=== PATIENT | male | born 1960 | race Caucasian/White ===

== ENCOUNTER 2022-06-27 08:51 | Day surgery (SDC) | payer MEDICARE ==
[~2022-06-27 08:51] MED LIST: ACETAMINOPHEN TAB 500 MG TAB PO PRN; DEXAMETHASONE SOD PHOSPHATE 4 MG/ML 1 ML VIAL IV ONE; HEPARIN SODIUM,PORCINE/PF 5,000 UNIT/0.5 ML SYRINGE SQ PRN; HYDROmorphone 0.5 MG/0.5 ML SYRINGE IVP PRN; LACTATED RINGERS 1,000 ML IV SCH; LIDOCAINE 1% (10MG/ML) FOR IV START INTRADERMA PRN; ONDANSETRON 4 MG/2 ML VIAL IVP ONE
[2022-06-27] MEDS ORDERED: SODIUM CHLORIDE 0.9% 1,000 ML IV ONE (09:15)
[2022-06-27 09:31] VITALS: TEMP 97.9
[2022-06-27 09:33] LABS: Glucose,Whole Blood 226 mg/dL (70-110)
[2022-06-27 09:59] LABS: Basophils % (A) 0 %; Eosinophils # (A) 0.2 k/uL (0-0.7); Eosinophils % (A) 6 %; HCT 27.7 % (39.0-53.0); HGB 9.9 gm/dL (13.0-17.5); Lymphocytes # (A) 0.7 k/uL (1.0-4.8); Lymphocytes % (A) 20 %; MCH 31.2 pg (25.0-35.0); MCHC 35.7 g/dL (31.0-37.0); MCV 87.3 fL (80.0-100.0); Mean Platelet Volume 8.1; Monocytes # (A) 0.4 k/uL (0-1.0); Monocytes % (A) 9 %; Neutrophils # (A) 2.3 k/uL (1.3-7.7); Neutrophils % (A) 62 %; Platelet Count 136 k/uL (150-450); RBC 3.17 m/uL (4.30-5.90); RDW 13.5 % (11.5-15.5); WBC 3.7 k/uL (3.8-10.6)
[2022-06-27 10:02] LABS: Calcium 8.5 mg/dL (8.4-10.2); Potassium 3.9 mmol/L (3.5-5.1)
[2022-06-27] MEDS ORDERED: LIDOCAINE 2% INJ 20 MG/ML (2 ML VIAL) ONE (11:19)
[2022-06-27] MEDS ORDERED: PROPOFOL 10 MG/ML 20 ML VIAL IV ONE (11:19)
[2022-06-27] MEDS ORDERED: MIDAZOLAM 2 MG/2 ML VIAL ONE (11:19)
[2022-06-27] MEDS ORDERED: fentaNYL (PF) 50 MCG/ML 2 ML AMP ONE (11:19)
[2022-06-27] MEDS ORDERED: MINERAL OIL 1 APPLIC/ML OIL MISCELLANE ONE (11:22)
[2022-06-27] MEDS ORDERED: BUPIVACAIN-EPI 0.25%-1:200,000 30 ML VIAL SQ ONE ×2 (11:22)
[2022-06-27] MEDS ORDERED: NALOXONE 0.4 MG/ML 1 ML VIAL IV PRN (12:22)
[2022-06-27] MEDS ORDERED: HYDROcodone/APAP 5-325MG 1 EACH TAB PO PRN (12:22)
--- NOTE | 2022-06-27 12:24 | P.OP ---
Date of Procedure: 06/27/22 Procedure(s) Performed: PREOPERATIVE DIAGNOSIS: Renal failure POSTOPERATIVE DIAGNOSIS: Same PROCEDURE: Peritoneal dialysis catheter insertion SURGEON: David EBL: Minimal ANESTHESIA: Sedation plus local COMPLICATIONS: None OPERATIVE PROCEDURE: The patient was placed in the operative table in the supine position. The abdomen was prepped and draped in usual sterile fashion. A small vertical incision was made in the left periumbilical location. Dissection down through the subcutaneous tissues took place using electrocautery. The anterior rectus was divided vertically using the scalpel. The rectus was bluntly. The posterior rectus was visualized. An 0 Vicryl pursestring was placed. A small opening in the posterior rectus fascia and peritoneum took place using a Metzenbaum scissors. There were no adhesions to the suture that was placed. The pigtail catheter was advanced into the pelvis over a stylette. No resistance was met. The inner cuff was secured to the fascia using the 0 Vicryl pursestring that was placed. The catheter was tunneled to an exit site in the left lateral lower quadrant. The catheter was connected to the 1 L bag of saline and approximated 800 mL of saline was easily introduced into the peritoneal cavity. The fluid was then allowed to evacuate. The majority of the fluid was returned. The anterior rectus fascia was then reapproximated using a running 0 Vicryl stitch. The subcutaneous tissues reprepped using 3-0 Vicryl sutures and the skin using 4-0 Monocryl sutures. The outpatient dialysis adapter was applied to the end of the catheter. Sterile dressings were then applied after skin glue was placed over the incision. DISPOSITION: Stable to recovery room
[2022-06-27 12:33] VITALS: RESP 16
[2022-06-27 12:50] VITALS: BP 132/73; PULSE 55
[2022-06-27 13:06] LABS: Glucose,Whole Blood 163 mg/dL (70-110)
== END 2022-06-27 13:31 | disposition home or self-care (01) ==
LOC: OR 08:51
PROVIDERS: ATTEND Surgery
DX: I12.9 Hypertensive chronic kidney disease with stage 1 through stage 4 chronic kidney disease, or unspecified chronic kidney disease (principal); N18.9 Chronic kidney disease, unspecified; E11.22 Type 2 diabetes mellitus with diabetic chronic kidney disease; E11.69 Type 2 diabetes mellitus with other specified complication; E78.5 Hyperlipidemia, unspecified; I25.10 Atherosclerotic heart disease of native coronary artery without angina pectoris; I25.2 Old myocardial infarction; E11.42 Type 2 diabetes mellitus with diabetic polyneuropathy; Z86.73 Personal history of transient ischemic attack (TIA), and cerebral infarction without residual deficits; Z88.6 Allergy status to analgesic agent; Z79.82 Long term (current) use of aspirin; Z79.01 Long term (current) use of anticoagulants; Z79.4 Long term (current) use of insulin; Z79.899 Other long term (current) drug therapy; Z95.5 Presence of coronary angioplasty implant and graft; Z82.49 Family history of ischemic heart disease and other diseases of the circulatory system; Z80.9 Family history of malignant neoplasm, unspecified
CPT/HCPCS: 80048; 85025; 49421; C1752; J2250; J0690; J2405; J3010; J2704; J1644; J2001

== ENCOUNTER 2022-06-28 13:17 | Emergency (ER) | payer MEDICARE ==
[2022-06-28 13:24] VITALS: PULSE 66; RESP 16
--- NOTE | 2022-06-28 15:28 | ED ---
General Adult HPI - General Chief complaint: Recheck/Abnormal Lab/Rx Stated complaint: Catheter problems Time Seen by Provider: 06/28/22 13:30 Source: patient, RN notes reviewed, old records reviewed Mode of arrival: ambulatory Limitations: no limitations - History of Present Illness Initial comments: This is a 62-year-old male who presents emergency Department complaining that he had a peritoneal catheter placed by Dr. Hernandez and a blood to the bandaging so he came in and was told that Dr. Hernandez come down and see him. Patient states since he put on new bandages there was very little bleeding. Patient denies any significant abdominal pain he states he's a little sore in that area but nothing that he wouldn't expect after having had the catheter placed. Patient denies any fever chills patient denies any vomiting. Patient denies any other symptoms. - Related Data Home Medications Medication Instructions Recorded Confirmed Ascorbic Acid [Vitamin C] 1,000 mg PO DAILY 06/23/22 06/27/22 Aspirin 81 mg PO DAILY 06/23/22 06/23/22 Bumetanide [BUMEX] 2 mg PO BID 06/23/22 06/27/22 Clopidogrel Bisulfate [Clopidogrel] 75 mg PO DAILY 06/23/22 06/23/22 Docusate Sodium [Dok] 100 mg PO BID 06/23/22 06/27/22 Ergocalciferol (Vitamin D2) 1,250 mcg PO DAILY 06/23/22 06/27/22 [Drisdol (50,000 Iu)] Gabapentin 300 mg PO DAILY 06/23/22 06/27/22 Insulin Aspart (For Pump) [NovoLOG 0.01 unit SQ-PUMP CONTINUOUS 06/23/22 06/27/22 (For Pump)] Isosorbide Mononitrate ER [Imdur] 30 mg PO HS 06/23/22 06/27/22 Simvastatin 40 mg PO HS 06/23/22 06/27/22 amLODIPine BESYLATE 10 mg PO DAILY 06/23/22 06/27/22 carvediloL 25 mg PO BID 06/23/22 06/27/22 hydrALAZINE HCL 25 mg PO BID 06/23/22 06/27/22 Allergies Allergy/AdvReac Type Severity Reaction Status Date / Time tramadol AdvReac Confusion Verified 06/27/22 09:12 Review of Systems ROS Statement: Those systems with pertinent positive or pertinent negative responses have been documented in the HPI. ROS Other: All systems not noted in ROS Statement are negative. Past Medical History Past Medical History: Coronary Artery Disease (CAD), CVA/TIA, Diabetes Mellitus, Dialysis, Hyperlipidemia, Hypertension, Myocardial Infarction (SC), Renal Disease Additional Past Medical History / Comment(s): loss of vision left eye, stroke 2010 no residual effect, Dialysis since mid December 2021, arthrits in hands, neuropathy in bilateral legs and feet. uses insulin pump, subclavian rt shoulder 01/10/22 for dialysis. Diabetic since 11 yrs old. intermittent edema to lower extremities. Last Myocardial Infarction Date:: 2010 History of Any Multi-Drug Resistant Organisms: None Reported Past Surgical History: Coronary Bypass/CABG, Heart Catheterization With Stent Additional Past Surgical History / Comment(s): 5 way bypass 06/15 [facility] [place], carpal tunnel left wrist, bilateral great toe nails removed long ago. Detached retina left eye repair. bilateral cataracts. Past Anesthesia/Blood Transfusion Reactions: No Reported Reaction Date of Last Stent Placement:: 2010 Past Psychological History: Anxiety Smoking Status: Never smoker - Past Family History Mother Additional Family Medical History / Comment(s): hyoglycemia Father Family Medical History: No Reported History General Exam - General Exam Comments Initial Comments: GENERAL Patient is well-developed and well-nourished. Patient is in mild distress. EYES Patient's pupils are equal and round. Extraocular motion is intact SKIN Unremarkable. The area around the catheter site is not actively bleeding. NEURO The patient is alert and oriented 3 PYSCH Patient has normal interpersonal interactions. MUSCULOSKELETAL All 4 extremities have full range of motion Limitations: no limitations Course Vital Signs 06/28/22 13:19 Temperature 97.9 F Pulse Rate 66 Respiratory 16 Rate Blood Pressure 152/77 O2 Sat by Pulse 95 Oximetry Medical Decision Making - Medical Decision Making Dr. Hernandez came down and evaluated the patient and determined the patient could go home Disposition Clinical Impression: Post-op bleeding Disposition: HOME SELF-CARE Condition: Good Additional Instructions: Follow-up per Dr. haider instructions Is patient prescribed a controlled substance at d/c from ED?: No Referrals: Jules Hernandez MD [Medical Doctor] - 1-2 days Time of Disposition: 15:28
--- NOTE | 2022-06-28 15:44 | P.CON ---
Consult Note - . Consult date: 06/28/22 Assessment/Plan:: Patient underwent uneventful open peritoneal dialysis catheter placement by myself yesterday. He did fine overnight. This morning the patient's family noticed that there was blood at the Tegaderm covered dressing left lower abdominal wall. Complaining of appropriate discomfort. Was seen by the dialysis nursing staff in [place] earlier today and some active oozing was noted around the catheter exit site. Pressure was held. He was sent to the ER for our evaluation. Patient has been hemodynamically stable. He did take a dose of aspirin and Plavix this morning but had previously held that for 5 days. Patient did have some indwelling ascites fluid at the time of dialysis catheter placement. In the ER his dressing was taken down. No active bleeding was seen. There was some old blood on the dressing. Sterilely this was redressed. Abdominal binder with an ice pack were applied. He may be discharged home to follow-up in the office. Hold Plavix for the next 48 hours.
[2022-06-28 15:55] VITALS: BP 163/72; TEMP 98.2
== END 2022-06-28 15:55 | disposition home or self-care (01) ==
LOC: EC 13:17
DX: L76.22 Postprocedural hemorrhage of skin and subcutaneous tissue following other procedure (principal); I25.10 Atherosclerotic heart disease of native coronary artery without angina pectoris; Z86.73 Personal history of transient ischemic attack (TIA), and cerebral infarction without residual deficits; E11.9 Type 2 diabetes mellitus without complications; E78.5 Hyperlipidemia, unspecified; I12.0 Hypertensive chronic kidney disease with stage 5 chronic kidney disease or end stage renal disease; N18.6 End stage renal disease; Z99.2 Dependence on renal dialysis; F41.9 Anxiety disorder, unspecified; Z88.8 Allergy status to other drugs, medicaments and biological substances; Z79.82 Long term (current) use of aspirin; Z79.899 Other long term (current) drug therapy
CPT/HCPCS: 99283